=== PATIENT | female | born 1980 | race Caucasian/White ===

== ENCOUNTER 2020-03-17 17:15 | Inpatient (IN) | payer MEDICAID ==
[~2020-03-17] VITALS: Ht 172.7 cm; Wt 73.1 kg
[2020-03-17 19:27] LABS: EOSINOPHILS % (AUTO) 1.8 % (1.0-6.0); LYMPHOCYTES # (AUTO) 2.1 K/uL (1.0-4.8); LYMPHOCYTES % (AUTO) 25.4 % (22.0-44.0); MEAN CORPUSCULAR HEMOGLOBIN 31.6 pg (26.0-34.0); MEAN CORPUSCULAR HGB CONC 33.4 G/dL (31.0-37.0); MEAN CORPUSCULAR VOLUME 94 fL (80-100); MONOCYTES # (AUTO) 0.5 K/uL (0.1-1.0); MONOCYTES % (AUTO) 5.6 % (2.0-9.0); NEUTROPHILS # (AUTO) 5.4 K/uL (1.8-7.7); NEUTROPHILS % (AUTO) 66.2 % (40.0-70.0); PLATELET COUNT (AUTO) 235 K/uL (150-450); RED BLOOD CELL COUNT(AUTO) 4.45 MIL/uL (4.00-5.20); RED CELL DISTRIBUTION WIDTH 14.6 % (11.5-14.5)
[2020-03-17 19:35] LABS: ANION GAP 10 mmol/L (8-16); CALCIUM, TOTAL 9.4 mg/dL (8.8-10.5); CARBON DIOXIDE 27 mmol/L (22-29); CHLORIDE 106 mmol/L (98-107); CREATININE 0.73 mg/dL (0.60-1.30); GLOMERULAR FILTR. RATE CALC > 60 mL/min (>60); GLUCOSE,RANDOM 117 mg/dL (70-110); POTASSIUM 4.4 mmol/L (3.5-5.1); SODIUM SERUM 143 mmol/L (136-145); UREA NITROGEN, BLOOD 8 mg/dL (7-18)
[2020-03-17] MEDS ORDERED: PERTUSS(ACELL),DIPH,TET VAC/PF 0.5 ML VIAL IM ONE (19:45)
[2020-03-17] MEDS ORDERED: LIDOCAINE 1%/EPI 1:200,000/PF 10 ML VIAL INJ ONE (19:45)
[2020-03-17] MEDS ORDERED: BACITRACIN 0.9 GM PACKET OINTMENT TP ONE (19:45)
[2020-03-17 19:48] LABS: ALANINE AMINOTRANSFERASE 14 U/L (12-78); ALBUMIN 4.4 g/dL (3.4-5.0); ALKALINE PHOSPHATASE 44 U/L (46-116); ASPARTATE AMINOTRANSFERASE 13 U/L (15-37); BILIRUBIN,TOTAL 0.5 mg/dL (0.1-1.0); HCG,QUANTITATIVE 2 mIU/mL (0-6); TOTAL PROTEIN, SERUM 7.5 g/dL (6.4-8.2)
[2020-03-17] MEDS ORDERED: LORazepam 1 MG TABLET PO ONE (22:15)
[2020-03-17 22:53] LABS: COVID AG,FIA SOURCE NASOPHARYNGEAL
[2020-03-17] MEDS ORDERED: ZOLPIDEM TARTRATE 10 MG TABLET PO PRN (23:00)
[2020-03-17] MEDS ORDERED: LORazepam 2 MG TABLET PO PRN (23:00)
[2020-03-17] MEDS ORDERED: QUEtiapine FUMARATE 100 MG TABLET PO PRN (23:00)
[2020-03-17 23:49] LABS: APPEARANCE,URINE CLEAR (CLEAR); BILIRUBIN,URINE NEGATIVE (NEGATIVE); GLUCOSE, URINE (UA) NEGATIVE (NEGATIVE); KETONES,URINE NEGATIVE (NEGATIVE); LEUKOCYTE ESTERASE ,URINE NEGATIVE (NEGATIVE); NITRATE,URINE NEGATIVE (NEGATIVE); OCCULT BLOOD,URINE NEGATIVE (NEGATIVE); PROTEIN,URINE NEGATIVE (NEGATIVE); UROBILINOGEN,URINE 0.2 mg/dL (<=1.0)
[2020-03-17 23:56] LABS: AMPHET/METH SCREEN,URINE NEGATIVE (NEGATIVE); BARBITURATE SCREEN, URINE NEGATIVE (NEGATIVE); BENZODIAZEPINES SCREEN,URINE NEGATIVE (NEGATIVE); CANNABINOID SCREEN,URINE NEGATIVE (NEGATIVE); COCAINE SCREEN,URINE NEGATIVE (NEGATIVE); METHADONE SCREEN, URINE NEGATIVE (NEGATIVE); OPIATE SCREEN,URINE NEGATIVE (NEGATIVE); PHENCYCLIDINE SCREEN,URINE NEGATIVE (NEGATIVE)
[2020-03-18 03:43] VITALS: BP 125/60
[2020-03-18 03:55] VITALS: BP 125/60
[2020-03-18 06:05] VITALS: BP 119/70
[2020-03-18] MEDS ORDERED: INFLUENZA VIRUS VACCINE QVS 2020-21 (6MO+)/PF 60 MCG/0.5 ML SYRINGE IM ONE (06:30)
[2020-03-18 07:02] LABS: CHOL/HDL RATIO 2.2 (3.9-5.7)
[2020-03-18 09:21] VITALS: BP 95/72
[2020-03-18] MEDS ORDERED: MAG HYDROX/AL HYDROX/SIMETH ES 30 ML SUSPENSION UDCUP PO PRN (13:15)
[2020-03-18] MEDS ORDERED: OLANZapine 5 MG RAPDIS TABLET PO PRN (13:15)
[2020-03-18] MEDS ORDERED: HydrOXYzine PAMOATE 50 MG CAPSULE PO PRN (13:15)
[2020-03-18] MEDS ORDERED: PROMETHAZINE HCL 25 MG TABLET PO PRN (13:15)
[2020-03-18] MEDS ORDERED: MAGNESIUM HYDROXIDE SUSPENSION 30 ML UDCUP PO PRN (13:15)
[2020-03-18] MEDS ORDERED: LOPERAMIDE HCL 2 MG CAPSULE PO PRN (13:15)
[2020-03-18] MEDS ORDERED: TUBERCULIN, PURIFIED PROTEIN DERIVATIVE 5 TU/0.1 ML SYRINGE ID ONE (13:15)
[2020-03-18] MEDS ORDERED: GuaiFENesin/D-METHORPHAN [SUGAR-FREE] 200-20MG/10 ML SYRUP UDCUP PO PRN (13:15)
[2020-03-18] MEDS ORDERED: ACETAMINOPHEN 325 MG TABLET PO PRN (13:15)
[2020-03-18] MEDS: THIAMINE 100 MG TABLET PO SCH (16:13)
[2020-03-18 18:46] VITALS: BP 116/61
[2020-03-18] MEDS: NICOTINE 21 MG/24 HOUR PATCH TD SCH (20:24)
[2020-03-18] MEDS ORDERED: OLANZapine 5 MG RAPDIS TABLET PO SCH (21:00)
[2020-03-19 07:23] LABS: CHOL/HDL RATIO 2.3 (3.9-5.7); FREE T4 (FREE THYROXINE) 1.02 ng/dL (0.76-1.46); THYROID STIMULATING HORMONE 1.09 uIU/mL (0.36-3.74)
[2020-03-19 08:00] VITALS: BP 127/79
[2020-03-19] MEDS: OMEGA-3/DHA/EPA/FISH OIL 1,000 MG CAPSULE PO SCH (08:37)
[2020-03-19] MEDS: MULTIVITAMINS WITH MINERALS, THERAPEUTIC TABLET PO SCH (08:37)
[2020-03-19] MEDS: FLUoxetine HCL 20 MG CAPSULE PO SCH (08:38)
[2020-03-19] MEDS: FOLIC ACID 1 MG TABLET PO SCH (08:38)
[2020-03-19] MEDS: THIAMINE 100 MG TABLET PO SCH ×2 (08:38→17:02)
[2020-03-19] MEDS: NICOTINE 21 MG/24 HOUR PATCH TD SCH (08:44)
[2020-03-19 16:00] VITALS: BP 130/80
[2020-03-19] MEDS ORDERED: OLAN5TAB30 PO (19:15)
[2020-03-19] MEDS ORDERED: FLUO-191 PO (19:15)
[2020-03-19] MEDS ORDERED: OMEG-135 PO (19:15)
[2020-03-19] MEDS ORDERED: OLANZapine 10 MG RAPDIS TABLET PO SCH (21:00)
[2020-03-20 08:00] VITALS: BP 107/65
[2020-03-20] MEDS: FLUoxetine HCL 20 MG CAPSULE PO SCH (08:23)
[2020-03-20] MEDS: MULTIVITAMINS WITH MINERALS, THERAPEUTIC TABLET PO SCH (08:23)
[2020-03-20] MEDS: FOLIC ACID 1 MG TABLET PO SCH (08:23)
[2020-03-20] MEDS: OMEGA-3/DHA/EPA/FISH OIL 1,000 MG CAPSULE PO SCH (08:23)
[2020-03-20] MEDS: THIAMINE 100 MG TABLET PO SCH (08:23)
[2020-03-20] MEDS: NICOTINE 21 MG/24 HOUR PATCH TD SCH (08:23)
== END 2020-03-20 14:00 | disposition home or self-care (01) | DRG 751 ==
LOC: EMS 17:15 → 3EI 03-18 01:48
PROVIDERS: ADMIT Psychiatry & Neurology Psychiatry; ATTEND Psychiatry & Neurology Psychiatry
PROC: 0HQEXZZ Repair Left Lower Arm Skin, External Approach (ICD-10-PCS; principal; 2020-03-18)
DX: F33.3 Major depressive disorder, recurrent, severe with psychotic symptoms (principal); R45.851 Suicidal ideations; S61.512A Laceration without foreign body of left wrist, initial encounter; W26.0XXA Contact with knife, initial encounter; Z20.828 Contact with and (suspected) exposure to other viral communicable diseases; Z55.9 Problems related to education and literacy, unspecified; Z59.9 Problem related to housing and economic circumstances, unspecified; Z63.8 Other specified problems related to primary support group; Z65.3 Problems related to other legal circumstances; Z28.21 Immunization not carried out because of patient refusal; Y93.89 Activity, other specified; Y92.89 Other specified places as the place of occurrence of the external cause; Y99.8 Other external cause status
CPT/HCPCS: 83036; 84439; 84443; 86592; 87426; 90715; G0480; J3490